=== PATIENT | male | born 1985 | race Two or more races ===

== ENCOUNTER 2024-01-27 16:04 | Emergency (ER) | payer BC ==
[~2024-01-27] VITALS: Ht 172.7 cm; Wt 79.8 kg
[2024-01-27 16:13] VITALS: BP 120/64; TEMP 98.3; O2SAT 97
== END 2024-01-27 16:47 | disposition home or self-care (01) ==
LOC: ER 16:08
DX: H92.01 Otalgia, right ear (principal); K21.9 Gastro-esophageal reflux disease without esophagitis; W44.8XXA Other foreign body entering into or through a natural orifice, initial encounter; Y93.89 Activity, other specified; Y92.89 Other specified places as the place of occurrence of the external cause; Y99.8 Other external cause status